=== PATIENT | female | born 1935 | race Caucasian/White ===

== ENCOUNTER 2018-04-23 13:43 | Emergency (ER) | payer MEDICARE, OTHER ==
[~2018-04-23] VITALS: Ht 170.2 cm; Wt 70.0 kg
[~2018-04-23 13:43] MED LIST: ANAS1TAB10 PO; ASPI-1265 PO; ATOR10TA70 PO; FOLI0.4T2 PO; MAGN500C16 PO; METO25TA6 PO; MULT-16 PO; SYN0.088T PO; THIA100T70 PO
[2018-04-23] MEDS ORDERED: normal saline 1000ML IV soln IV ONE (13:50)
[2018-04-23] MEDS ORDERED: folic acid 1mg/0.2ml inj IV ONE ×2 (13:50→15:25)
[2018-04-23] MEDS ORDERED: thiamine 100mg/ml 2ml inj. IV ONE (13:50)
[2018-04-23 14:21] LABS: BASOPHILS % (AUTO) 0.6 % (0-1); EOSINOPHILS # (AUTO) 0.5 X10'3 (0-0.9); EOSINOPHILS % (AUTO) 8.5 % (0-6); HEMATOCRIT 37.6 % (35.0-45.0); HEMOGLOBIN 12.2 g/dl (12.0-16.0); LYMPHOCYTES # (AUTO) 1.9 X10'3 (1.1-4.8); LYMPHOCYTES % (AUTO) 32.6 % (21-51); MEAN CORPUSCULAR HEMOGLOBIN 27.5 PG (27.0-31.0); MEAN CORPUSCULAR HGB CONC 32.5 % (33.0-36.5); MEAN CORPUSCULAR VOLUME 84.8 FL (78-98); MEAN PLATELET VOLUME 6.8 FL (7.4-10.4); MONOCYTES # (AUTO) 0.4 X10'3 (0-0.9); MONOCYTES % (AUTO) 6.6 % (2-12); NEUTROPHILS % (AUTO) 51.7 % (42-75); PLATELET COUNT 270 X10'3 (140-440); RED BLOOD COUNT 4.43 X10'6 (4.20-5.60); RED CELL DISTRIBUTION WIDTH 21.9 % (11.5-14.5); WHITE BLOOD COUNT 5.7 X10'3 (4.5-11.0)
[2018-04-23 14:28] LABS: ALANINE AMINOTRANSFERASE 88 U/L (12-78); ALBUMIN 3.3 G/DL (3.4-5.0); ALBUMIN/GLOBULIN RATIO 0.8 (1.1-1.5); ALKALINE PHOSPHATASE 103 IU/L (46-116); ANION GAP 9 (8-16); ASPARTATE AMINO TRANSFERASE 132 U/L (10-37); BILIRUBIN,TOTAL 0.3 MG/DL (0.1-1.0); BLOOD UREA NITROGEN 9 MG/DL (7-18); CALCIUM 8.6 MG/DL (8.5-10.1); CHLORIDE 102 MMOL/L (99-107); CREATININE 0.82 MG/DL (0.40-0.90); GLUCOSE 80 MG/DL (70-104); SODIUM 136 MMOL/L (135-145); TOTAL PROTEIN 7.3 G/DL (6.4-8.2); eGFR 67 ML/MIN
[2018-04-23 14:35] LABS: POTASSIUM 4.8 MMOL/L (3.5-5.1)
[2018-04-23 14:41] LABS: ETHANOL 0.332 GM/DL (0.0-0.010)
[2018-04-23 14:43] VITALS: BP 137/79
== END 2018-04-23 18:00 | disposition home or self-care (01) ==
LOC: ER 13:44
DX: F10.129 Alcohol abuse with intoxication, unspecified (principal); I49.9 Cardiac arrhythmia, unspecified; I25.10 Atherosclerotic heart disease of native coronary artery without angina pectoris; I10 Essential (primary) hypertension; E03.9 Hypothyroidism, unspecified; Z86.73 Personal history of transient ischemic attack (TIA), and cerebral infarction without residual deficits; Z79.82 Long term (current) use of aspirin; Z79.899 Other long term (current) drug therapy; Y90.0 Blood alcohol level of less than 20 mg/100 ml
CPT/HCPCS: 36415; 70450; 80053; 80320; 85025; 93005; 96374; 96375; 99285; J3411; J3490; J7030

== ENCOUNTER 2018-05-25 15:58 | Emergency (ER) | payer MEDICARE, OTHER ==
[~2018-05-25] VITALS: Ht 165.1 cm; Wt 72.7 kg
[2018-05-25 17:26] LABS: CLARITY,URINE CLEAR (Clear); COLOR,URINE YELLOW (Yellow); GLUCOSE, URINE NEGATIVE (Neg); KETONES,URINE NEGATIVE (Neg); LEUKOCYTE ESTERASE ,URINE NEGATIVE (Neg); NITRITES, URINE NEGATIVE (Neg); OCCULT BLOOD,URINE SMALL (Neg); PH,URINE 5.5 (4.8-8.0); PROTEIN,URINE NEGATIVE (Neg); UROBILINOGEN,URINE 0.2 E.U/dL (0.2-1.0)
[2018-05-25 17:34] LABS: UA COLLECTION TYPE STRAIGHT CATH
[2018-05-25 17:37] LABS: BACTERIA,URINE NONE SEEN /HPF (Neg); RBC,URINE 0-2 /HPF (0-2); SQUAMOUS EPITHELIAL CELL,UR NONE SEEN /LPF (FEW); WBC,URINE NONE SEEN /HPF (0-4)
[2018-05-25 17:38] LABS: URINE AMPHETAMINE SCREEN NEGATIVE (Neg); URINE BARBITUATE SCREEN NEGATIVE (Neg); URINE BENZODIAZEPINES SCREEN NEGATIVE (Neg); URINE CANNABINOID SCREEN NEGATIVE (Neg); URINE COCAINE SCREEN NEGATIVE (Neg); URINE METHADONE SCREEN NEGATIVE (Neg); URINE OPIATE SCREEN NEGATIVE (Neg); URINE PHENCYCLIDINE SCREEN NEGATIVE (Neg)
[2018-05-25 17:49] LABS: INR 0.9 INR; PARTIAL THROMBOPLASTIN TIME 22 SECONDS (22-32); PROTHROMBIN TIME 9.7 SECONDS (9.0-12.0)
[2018-05-25 18:12] LABS: BASOPHILS % (AUTO) 0.5 % (0-1); EOSINOPHILS # (AUTO) 0.7 X10'3 (0-0.9); EOSINOPHILS % (AUTO) 12.8 % (0-6); LYMPHOCYTES # (AUTO) 1.9 X10'3 (1.1-4.8); MEAN CORPUSCULAR HEMOGLOBIN 28.4 PG (27.0-31.0); MEAN CORPUSCULAR HGB CONC 32.6 % (33.0-36.5); MEAN CORPUSCULAR VOLUME 87.1 FL (78-98); MEAN PLATELET VOLUME 6.7 FL (7.4-10.4); MONOCYTES # (AUTO) 0.3 X10'3 (0-0.9); MONOCYTES % (AUTO) 6.5 % (2-12); NEUTROPHILS # (AUTO) 2.3 X10'3 (1.8-7.7); NEUTROPHILS % (AUTO) 43.2 % (42-75); PLATELET COUNT 234 X10'3 (140-440); RED CELL DISTRIBUTION WIDTH 22.4 % (11.5-14.5); WHITE BLOOD COUNT 5.2 X10'3 (4.5-11.0)
[2018-05-25 18:26] LABS: ALANINE AMINOTRANSFERASE 30 U/L (12-78); ALBUMIN 3.3 G/DL (3.4-5.0); ALBUMIN/GLOBULIN RATIO 0.8 (1.1-1.5); ALKALINE PHOSPHATASE 79 IU/L (46-116); ANION GAP 11 (8-16); ASPARTATE AMINO TRANSFERASE 45 U/L (10-37); BILIRUBIN,TOTAL 0.2 MG/DL (0.1-1.0); BLOOD UREA NITROGEN 7 MG/DL (7-18); BUN/CREATININE RATIO 8.5 (6.6-38.0); CALCIUM 8.9 MG/DL (8.5-10.1); CHLORIDE 95 MMOL/L (99-107); CREATININE 0.82 MG/DL (0.40-0.90); GLUCOSE 99 MG/DL (70-104); POTASSIUM 3.7 MMOL/L (3.5-5.1); SODIUM 133 MMOL/L (135-145); TOTAL CARBON DIOXIDE 27.3 MMOL/L (24-32); TOTAL PROTEIN 7.5 G/DL (6.4-8.2); eGFR 67 ML/MIN
[2018-05-25 18:33] VITALS: BP 131/71
[2018-05-25 18:34] LABS: ACETAMINOPHEN < 2.0 UG/ML (10-30); ETHANOL 0.314 GM/DL (0.0-0.010); MAGNESIUM 1.9 MG/DL (1.5-2.4)
[2018-05-25 18:39] LABS: PLATELET ESTIMATE NORMAL
[2018-05-25 18:41] LABS: ANISOCYTOSIS 3+; ELLIPTOCYTES FEW; SCHISTOCYTES FEW; TARGET CELLS FEW
== END 2018-05-25 20:06 | disposition home or self-care (01) ==
LOC: ER 15:58
DX: F10.129 Alcohol abuse with intoxication, unspecified (principal); F03.90 Unspecified dementia, unspecified severity, without behavioral disturbance, psychotic disturbance, mood disturbance, and anxiety; I25.10 Atherosclerotic heart disease of native coronary artery without angina pectoris; F29 Unspecified psychosis not due to a substance or known physiological condition; I10 Essential (primary) hypertension; E03.9 Hypothyroidism, unspecified; Z79.82 Long term (current) use of aspirin; Z79.899 Other long term (current) drug therapy
CPT/HCPCS: 36415; 70450; 71045; 80053; 80305; 80320; 80329; 81001; 83735; 85025; 85610; 85730; 93005; 99285

== ENCOUNTER 2018-12-12 22:42 | Emergency (ER) | payer MEDICARE ==
[~2018-12-12] VITALS: Ht 167.6 cm; Wt 65.0 kg
[2018-12-12] MEDS ORDERED: normal saline 1000ML IV soln IVB ONE (23:00)
[2018-12-12 23:18] LABS: BASOPHILS # (AUTO) 0.1 X10'3 (0-0.2); EOSINOPHILS # (AUTO) 0.2 X10'3 (0-0.9); EOSINOPHILS % (AUTO) 2.9 % (0-6); HEMATOCRIT 41.1 % (35.0-45.0); HEMOGLOBIN 13.6 g/dl (12.0-16.0); LYMPHOCYTES # (AUTO) 1.1 X10'3 (1.1-4.8); LYMPHOCYTES % (AUTO) 16.2 % (21-51); MEAN CORPUSCULAR HEMOGLOBIN 30.1 PG (27.0-31.0); MEAN CORPUSCULAR HGB CONC 33.2 g/dL (33.0-36.5); MEAN CORPUSCULAR VOLUME 90.7 FL (78-98); MONOCYTES # (AUTO) 0.5 X10'3 (0-0.9); MONOCYTES % (AUTO) 7.9 % (2-12); NEUTROPHILS # (AUTO) 4.8 X10'3 (1.8-7.7); PLATELET COUNT 213 X10'3 (140-440); RED BLOOD COUNT 4.53 X10'6 (4.20-5.60); RED CELL DISTRIBUTION WIDTH 20.4 % (11.5-14.5); WHITE BLOOD COUNT 6.7 X10'3 (4.5-11.0)
[2018-12-12 23:31] LABS: PROTHROMBIN TIME 10.5 SECONDS (9.0-12.0)
[2018-12-12 23:32] LABS: PARTIAL THROMBOPLASTIN TIME 27 SECONDS (22-32)
[2018-12-12 23:37] LABS: ALANINE AMINOTRANSFERASE 31 U/L (12-78); ALBUMIN 3.5 G/DL (3.4-5.0); ALBUMIN/GLOBULIN RATIO 0.8 (1.1-1.5); ALKALINE PHOSPHATASE 98 IU/L (46-116); ANION GAP 11 (8-16); ASPARTATE AMINO TRANSFERASE 45 U/L (10-37); BILIRUBIN,TOTAL 0.3 MG/DL (0.1-1.0); BLOOD UREA NITROGEN 6 MG/DL (7-18); BUN/CREATININE RATIO 7.1 (6.6-38.0); CALCIUM 9.2 MG/DL (8.5-10.1); CHLORIDE 97 MMOL/L (99-107); CREATININE 0.84 MG/DL (0.40-0.90); GLUCOSE 83 MG/DL (70-104); SODIUM 132 MMOL/L (135-145); TOTAL CARBON DIOXIDE 23.8 MMOL/L (24-32); TOTAL PROTEIN 7.7 G/DL (6.4-8.2); eGFR 65 ML/MIN
[2018-12-12 23:39] LABS: ETHANOL 0.221 GM/DL (0.0-0.010); TROPONIN I < 0.04 NG/ML (0.0-0.05)
[2018-12-12 23:40] LABS: AMMONIA < 10 UMOL/L (11-32)
[2018-12-12 23:44] LABS: LACTIC SEPSIS 3.9 MMOL/L (0.4-2.0)
[2018-12-12 23:49] LABS: CLARITY,URINE CLEAR (Clear); COLOR,URINE YELLOW (Yellow); GLUCOSE, URINE NEGATIVE (Neg); KETONES,URINE NEGATIVE (Neg); LEUKOCYTE ESTERASE ,URINE NEGATIVE (Neg); NITRITES, URINE NEGATIVE (Neg); OCCULT BLOOD,URINE TRACE-LYSED (Neg); PROTEIN,URINE NEGATIVE (Neg); UROBILINOGEN,URINE 0.2 E.U/dL (0.2-1.0)
[2018-12-12 23:51] LABS: URINE AMPHETAMINE SCREEN NEGATIVE (Neg); URINE BARBITUATE SCREEN NEGATIVE (Neg); URINE BENZODIAZEPINES SCREEN NEGATIVE (Neg); URINE CANNABINOID SCREEN NEGATIVE (Neg); URINE COCAINE SCREEN NEGATIVE (Neg); URINE METHADONE SCREEN NEGATIVE (Neg); URINE OPIATE SCREEN NEGATIVE (Neg); URINE PHENCYCLIDINE SCREEN NEGATIVE (Neg)
[2018-12-12 23:55] LABS: UA COLLECTION TYPE VOIDED
[2018-12-12 23:56] LABS: BACTERIA,URINE NONE SEEN /HPF (Neg); RBC,URINE 0-2 /HPF (0-2); SQUAMOUS EPITHELIAL CELL,UR FEW /LPF (FEW); WBC,URINE NONE SEEN /HPF (0-4)
--- NOTE | 2018-12-13 00:05 | NUR ---
Pt. was never in restraints. It is not needed at this time.
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
--- NOTE | 2018-12-13 01:20 | NUR ---
LEFT MESSAGE FOR EMAN REGARDING A TLSO BRACE
--- NOTE | 2018-12-13 01:23 | NUR ---
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
[2018-12-13 01:51] VITALS: BP 140/76
== END 2018-12-13 02:40 | disposition home or self-care (01) ==
LOC: ER 22:43
DX: S22.028A Other fracture of second thoracic vertebra, initial encounter for closed fracture (principal); S22.42XA Multiple fractures of ribs, left side, initial encounter for closed fracture; S01.01XA Laceration without foreign body of scalp, initial encounter; F10.129 Alcohol abuse with intoxication, unspecified; I25.10 Atherosclerotic heart disease of native coronary artery without angina pectoris; I10 Essential (primary) hypertension; E03.9 Hypothyroidism, unspecified; Z86.73 Personal history of transient ischemic attack (TIA), and cerebral infarction without residual deficits; Z79.82 Long term (current) use of aspirin; Z79.899 Other long term (current) drug therapy; Y90.9 Presence of alcohol in blood, level not specified; X58.XXXA Exposure to other specified factors, initial encounter; Y93.89 Activity, other specified; Y92.89 Other specified places as the place of occurrence of the external cause; Y99.8 Other external cause status
CPT/HCPCS: 12001; 36415; 70450; 71045; 72125; 72128; 72131; 80053; 80305; 80320; 81001; 82140; 82948; 83605; 84484; 85025; 85610; 85730; 87040; 93005; 99284; J7030

== ENCOUNTER 2019-08-12 12:35 | Inpatient (IN) | payer MEDICARE ==
[~2019-08-12] VITALS: Ht 165.1 cm; Wt 68.0 kg
[2019-08-12] MEDS ORDERED: iohexol 350MG/ML 100ml bottle IV ONE (12:47)
[2019-08-12 12:53] LABS: BASOPHILS # (AUTO) 0.1 X10'3 (0-0.2); BASOPHILS % (AUTO) 0.5 % (0-1); EOSINOPHILS # (AUTO) 0.2 X10'3 (0-0.9); HEMATOCRIT 41.9 % (35.0-45.0); HEMOGLOBIN 13.4 g/dl (12.0-16.0); LYMPHOCYTES # (AUTO) 0.8 X10'3 (1.1-4.8); MEAN CORPUSCULAR HEMOGLOBIN 29.1 PG (27.0-31.0); MEAN CORPUSCULAR HGB CONC 31.9 g/dL (33.0-36.5); MEAN CORPUSCULAR VOLUME 91.4 FL (78-98); MEAN PLATELET VOLUME 7.2 FL (7.4-10.4); MONOCYTES # (AUTO) 0.5 X10'3 (0-0.9); MONOCYTES % (AUTO) 3.1 % (2-12); NEUTROPHILS # (AUTO) 14.7 X10'3 (1.8-7.7); NEUTROPHILS % (AUTO) 90.4 % (42-75); PLATELET COUNT 224 X10'3 (140-440); RED BLOOD COUNT 4.58 X10'6 (4.20-5.60); RED CELL DISTRIBUTION WIDTH 15.2 % (11.5-14.5); WHITE BLOOD COUNT 16.3 X10'3 (4.5-11.0)
--- NOTE | 2019-08-12 12:59 | NUR ---
TELE NEURO CONSULT HAS BEEN INITIATED
[2019-08-12 13:07] LABS: PARTIAL THROMBOPLASTIN TIME 24 SECONDS (22-32)
[2019-08-12 13:11] LABS: ALANINE AMINOTRANSFERASE 17 U/L (12-78); ALBUMIN 3.8 G/DL (3.4-5.0); ALBUMIN/GLOBULIN RATIO 0.8 (1.1-1.5); ALKALINE PHOSPHATASE 77 IU/L (46-116); ANION GAP 14 (8-16); ASPARTATE AMINO TRANSFERASE 24 U/L (10-37); BILIRUBIN,TOTAL 0.3 MG/DL (0.1-1.0); BLOOD UREA NITROGEN 10 MG/DL (7-18); BUN/CREATININE RATIO 8.8 (6.6-38.0); CALCIUM 9.3 MG/DL (8.5-10.1); CHLORIDE 100 MMOL/L (99-107); CREATININE 1.14 MG/DL (0.40-0.90); GLUCOSE 158 MG/DL (70-104); POTASSIUM 3.6 MMOL/L (3.5-5.1); SODIUM 138 MMOL/L (135-145); TOTAL CARBON DIOXIDE 24.5 MMOL/L (24-32); TOTAL PROTEIN 8.7 G/DL (6.4-8.2); eGFR 45 ML/MIN
[2019-08-12 13:14] LABS: TROPONIN I < 0.04 NG/ML (0.0-0.05)
[2019-08-12] MEDS ORDERED: ANAS1TAB PO (13:30)
[2019-08-12] MEDS ORDERED: DESV25TA2 PO (13:33)
[2019-08-12] MEDS ORDERED: ACET-2119 PO (13:37)
[2019-08-12] MEDS ORDERED: CETI10TA15 PO (13:37)
[2019-08-12] MEDS ORDERED: DOXY25PO2 PO (13:40)
[2019-08-12] MEDS ORDERED: CALC500T11 PO (13:41)
[2019-08-12] MEDS ORDERED: ondansetron/PF 4mg/2ml inj IV ONE (13:45)
[2019-08-12] MEDS ORDERED: BISM525O14 PO (13:51)
[2019-08-12 13:57] LABS: ETHANOL < 0.010 GM/DL (0.0-0.010)
[2019-08-12] MEDS ORDERED: diphenhydrAMINE 25mg capsule PO PRN (15:05)
[2019-08-12] MEDS ORDERED: potassium Cl 20 mEq SR tablet PO PRN (15:05)
[2019-08-12] MEDS ORDERED: HYDROcodone/acetaminophen 5mg/325mg tablet PO PRN (15:05)
[2019-08-12] MEDS ORDERED: potassium CL 10mEq/100ml bag 100 ML IV PRN (15:05)
[2019-08-12] MEDS ORDERED: magnesium hydroxide 30ml (MOM) UD suspension PO PRN ×2 (15:05)
[2019-08-12] MEDS ORDERED: magnesium 4gm in 100ml NS 100 ML IV PRN (15:05)
[2019-08-12] MEDS ORDERED: morphine 2 MG/ML inj. syringe IV PRN ×2 (15:05)
[2019-08-12] MEDS ORDERED: magnesium 2GM in 50ml NS 50 ML IV PRN (15:05)
[2019-08-12] MEDS ORDERED: acetaminophen 325mg tablet PO PRN ×3 (15:05)
[2019-08-12] MEDS ORDERED: acetaminophen 650mg rectal suppository RC PRN (15:05)
[2019-08-12] MEDS: atorvastatin 20mg tablet PO SCH (15:05)
[2019-08-12] MEDS: K and/or MAG REPLACEMENT MC SCH (15:05)
[2019-08-12] MEDS ORDERED: mag hydrox/Alum hydrox/simeth 30ml oral suspension PO PRN ×2 (15:05)
[2019-08-12] MEDS ORDERED: ondansetron/PF 4mg/2ml inj IV PRN ×2 (15:05)
[2019-08-12] MEDS ORDERED: HYDROcodone/acetaminophen 10/325mg tab PO PRN (15:05)
[2019-08-12] MEDS ORDERED: magnesium Cl slow-release 64mg tablet PO PRN (15:05)
[2019-08-12] MEDS ORDERED: bisacodyl 10mg suppository rectal RC PRN (15:05)
[2019-08-12] MEDS ORDERED: diphenhydrAMINE 50 mg/ml inj IV PRN (15:05)
[2019-08-12] MEDS ORDERED: aspirin 325mg tablet PO ONE ×2 (15:10)
[2019-08-12] MEDS ORDERED: aspirin 300mg supp.rect RC ONE (15:15)
[2019-08-12] MEDS ORDERED: MULT-16 PO (15:46)
[2019-08-12] MEDS ORDERED: THIA50TA10 PO (15:46)
[2019-08-12] MEDS ORDERED: MULT-933 PO (15:48)
[2019-08-12 15:53] LABS: HEMOGLOBIN A1C 5.4 % (4.5-6.2)
[2019-08-12 15:58] LABS: CHOL/HDL RATIO 2.4 (0.00-4.99); CHOLESTEROL 188 MG/DL (0-200); HDL CHOLESTEROL 77 MG/DL (35-60); LDL CHOLESTEROL 101 MG/DL (50-100); TRIGLYCERIDES 102 MG/DL (20-135)
[2019-08-12 15:59] LABS: CLARITY,URINE SLIGHTLY CLOUDY (Clear); COLOR,URINE STRAW (Yellow); GLUCOSE, URINE NEGATIVE (Neg); KETONES,URINE NEGATIVE (Neg); LEUKOCYTE ESTERASE ,URINE NEGATIVE (Neg); NITRITES, URINE NEGATIVE (Neg); OCCULT BLOOD,URINE MODERATE (Neg); PH,URINE 5.5 (4.8-8.0); PROTEIN,URINE NEGATIVE (Neg); UROBILINOGEN,URINE 0.2 E.U/dL (0.2-1.0)
[2019-08-12 16:05] LABS: UA COLLECTION TYPE STRAIGHT CATH
[2019-08-12] MEDS: normal saline 1000ml 1,000 ML IV SCH (16:08)
[2019-08-12 16:29] LABS: MUCUS STRANDS FEW /LPF (Neg); SQUAMOUS EPITHELIAL CELL,UR MODERATE /LPF (FEW)
[2019-08-12 16:30] LABS: FINE GRANULAR CAST 0-3 /LPF (NEGATIVE)
[2019-08-12 16:31] LABS: AMORPHOUS URATES 1+; BACTERIA,URINE 1+ /HPF (Neg)
--- NOTE | 2019-08-12 16:33 | NUR ---
power of care specialist: shivani ramsey: [phone] bell rodriguez: [phone]
--- NOTE | 2019-08-12 16:55 | NUR ---
Pt arrived on the floor, tucked in, provided reassurance, pt non-verbal at this time.
[2019-08-12] MEDS ORDERED: BISMUTH SUBSALICYLATE PO SCH (17:00)
[2019-08-12 18:00] VITALS: BP 172/89
--- NOTE | 2019-08-12 18:20 | NUR ---
Received report from Kelli CHRISTIAN. assumed care of patient. son at the bedside.
--- NOTE | 2019-08-12 18:20 | NUR ---
Problems reprioritized. Patient report given, questions answered & plan of care reviewed with Luna.
[2019-08-12] MEDS: docusate sod 100mg capsule PO SCH (20:00)
[2019-08-12] MEDS: heparin, porcine 5000 units/ml vial SQ SCH (20:25)
[2019-08-12] MEDS: calcium carbonate 500mg chew tablet PO SCH (20:25)
[2019-08-12] MEDS: acetaminophen 325mg tablet PO SCH (20:25)
[2019-08-12] MEDS: bismuth subsalicylate 262mg/15ml oral suspension PO SCH (20:25)
[2019-08-12] MEDS ORDERED: DOXYLAMINE SUCCINATE PO SCH (21:00)
--- NOTE | 2019-08-12 21:00 | NUR ---
Attempted to check patients blood sugar. Patient refused. educated patient and encouraged patient to allow me to check patient. patient refused. will continue to monitor patient.
[2019-08-12 22:00] VITALS: BP 152/80
[2019-08-13] MEDS: normal saline 1000ml 1,000 ML IV SCH ×3 (01:03→12:17)
[2019-08-13 02:00] VITALS: BP 162/70
[2019-08-13 06:00] VITALS: BP 140/63
--- NOTE | 2019-08-13 06:00 | NUR ---
Patient in room [facility]TH[facility] 4020. I have received report from ANAHY CHRISTIAN and had the opportunity to ask questions and assume patient care.
--- NOTE | 2019-08-13 06:10 | NUR ---
Gave report to Alicia CHRISTIAN.
[2019-08-13] MEDS: atorvastatin 20mg tablet PO SCH (08:00)
[2019-08-13] MEDS: magnesium oxide 400mg tablet PO SCH (08:00)
[2019-08-13] MEDS: cetirizine 10mg tablet PO SCH (08:00)
[2019-08-13] MEDS: thiamine 100mg tablet PO SCH (08:00)
[2019-08-13] MEDS: docusate sod 100mg capsule PO SCH ×2 (08:00→21:18)
[2019-08-13] MEDS: aspirin 81mg tablet.DR PO SCH (08:00)
[2019-08-13] MEDS: bismuth subsalicylate 262mg/15ml oral suspension PO SCH ×4 (08:00→21:00)
[2019-08-13] MEDS: calcium carbonate 500mg chew tablet PO SCH ×4 (08:00→21:18)
[2019-08-13] MEDS: multivitamins, therapeutics tablet PO SCH (08:00)
[2019-08-13] MEDS: anastrozole 1 MG tablet PO SCH (08:00)
[2019-08-13] MEDS: DESVENLAFAXINE 25 MG PO SCH (08:00)
[2019-08-13] MEDS: folic acid 1mg tablet PO SCH (08:00)
--- NOTE | 2019-08-13 08:25 | NUR ---
PATIENT REFUSING ACCUCHECK.
[2019-08-13] MEDS: heparin, porcine 5000 units/ml vial SQ SCH ×2 (09:01→21:19)
[2019-08-13 10:00] VITALS: BP 144/84
--- NOTE | 2019-08-13 10:09 | NUR ---
PAGER ID: [phone] MESSAGE: BOB [id number] RE: SHIRLEY [id number] DO YOU WANT ME TO START ROCEPHIN?
--- NOTE | 2019-08-13 10:21 | NUR ---
Pt with low Rory of 11, per physical assessment pt with no edema or wounds however documented with reddened coccyx. Wound care has been consulted for further assessment however skin intact at this time. No nutrition intervention warranted at this time. Pt on regular diet documented with 0% PO intake first meal. Pt s/p BSS this morning with ST recs mechanical soft with thin liquids and needs a feeder d/t cognitive level. 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 Will continue to follow and monitor need for ONS pending PO intake since texture modification. Addendum: 08/13/19 at [address] Amended: Links added.
[2019-08-13 11:06] LABS: BASOPHILS % (AUTO) 0.7 % (0-1); EOSINOPHILS % (AUTO) 0.1 % (0-6); HEMATOCRIT 34.5 % (35.0-45.0); HEMOGLOBIN 11.4 g/dl (12.0-16.0); LYMPHOCYTES # (AUTO) 0.9 X10'3 (1.1-4.8); LYMPHOCYTES % (AUTO) 13.8 % (21-51); MEAN CORPUSCULAR HEMOGLOBIN 29.8 PG (27.0-31.0); MEAN CORPUSCULAR HGB CONC 33.1 g/dL (33.0-36.5); MEAN CORPUSCULAR VOLUME 90.1 FL (78-98); MEAN PLATELET VOLUME 7.3 FL (7.4-10.4); MONOCYTES # (AUTO) 0.5 X10'3 (0-0.9); NEUTROPHILS # (AUTO) 5.1 X10'3 (1.8-7.7); NEUTROPHILS % (AUTO) 77.4 % (42-75); PLATELET COUNT 170 X10'3 (140-440); RED BLOOD COUNT 3.82 X10'6 (4.20-5.60); RED CELL DISTRIBUTION WIDTH 14.8 % (11.5-14.5); WHITE BLOOD COUNT 6.6 X10'3 (4.5-11.0)
[2019-08-13 11:30] LABS: ALANINE AMINOTRANSFERASE 14 U/L (12-78); ALBUMIN/GLOBULIN RATIO 0.7 (1.1-1.5); ALKALINE PHOSPHATASE 57 IU/L (46-116); ANION GAP 11 (8-16); ASPARTATE AMINO TRANSFERASE 26 U/L (10-37); BILIRUBIN,TOTAL 0.5 MG/DL (0.1-1.0); BLOOD UREA NITROGEN 9 MG/DL (7-18); BUN/CREATININE RATIO 12.5 (6.6-38.0); CALCIUM 8.4 MG/DL (8.5-10.1); CHLORIDE 100 MMOL/L (99-107); CHOL/HDL RATIO 2.5 (0.00-4.99); CHOLESTEROL 155 MG/DL (0-200); CREATININE 0.72 MG/DL (0.40-0.90); GLUCOSE 94 MG/DL (70-104); HDL CHOLESTEROL 63 MG/DL (35-60); LDL CHOLESTEROL 84 MG/DL (50-100); MAGNESIUM 1.6 MG/DL (1.5-2.4); PHOSPHORUS 2.6 MG/DL (2.3-4.5); POTASSIUM 3.2 MMOL/L (3.5-5.1); SODIUM 134 MMOL/L (135-145); TOTAL CARBON DIOXIDE 23.1 MMOL/L (24-32); TOTAL PROTEIN 7.1 G/DL (6.4-8.2); TRIGLYCERIDES 63 MG/DL (20-135); eGFR 77 ML/MIN
[2019-08-13] MEDS: K and/or MAG REPLACEMENT MC SCH (12:02)
[2019-08-13] MEDS: potassium CL 10mEq/100ml bag 100 ML IV PRN ×4 (12:13→21:29)
--- NOTE | 2019-08-13 12:50 | NUR ---
PATIENT REFUSING ACCUCHECK
[2019-08-13] MEDS: CefTRIAXone/D5W-Rocephin 1gm 50 ML IV SCH (15:51)
--- NOTE | 2019-08-13 17:30 | NUR ---
CONTACTED SON REGARDING BRINGING IN PATIENT'S OWN PRISTIQUE MEDICATION. HE WILL CONTACT HE LONG-TERM AND BRING IT IN OR LET US KNOW IF THAT CAN'T BE DONE. IF UNABLE TO BRING IN, CONTACT OUR PHARMACY FOR A SUBSTITUTION PER DR DORAN.
--- NOTE | 2019-08-13 17:48 | NUR ---
PAGER ID: [phone] MESSAGE: BOB [id number] RE: SHIRLEY [id number] PT A1C 5.4 CAN WE DC ACCUCHECKS?
[2019-08-13 18:00] VITALS: BP 153/72
--- NOTE | 2019-08-13 18:20 | NUR ---
Problems reprioritized. Patient report given, questions answered & plan of care reviewed with SONNY CHRISTIAN.
[2019-08-13] MEDS: lactobacillus rhamnosus 10,000 MMU CELLS/CAPSULE PO SCH (21:18)
[2019-08-13] MEDS: acetaminophen 325mg tablet PO SCH (21:18)
[2019-08-13 22:00] VITALS: BP 146/75
[2019-08-14] MEDS: normal saline 1000ml 1,000 ML IV SCH ×2 (02:44→12:55)
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
--- NOTE | 2019-08-14 04:03 | NUR ---
REVIEWED AND AGREE WITH SRN ASSESSMENT.
[2019-08-14 06:00] VITALS: BP 160/80
--- NOTE | 2019-08-14 06:19 | NUR ---
Problems reprioritized. Patient report given, questions answered & plan of care reviewed with ANAHI Pereira.
--- NOTE | 2019-08-14 06:40 | NUR ---
Patient in room ORTHO 4020. I have received report from Donna Devine and had the opportunity to ask questions and assume patient care.
[2019-08-14] MEDS: K and/or MAG REPLACEMENT MC SCH (08:00)
[2019-08-14] MEDS: DESVENLAFAXINE 25 MG PO SCH (08:00)
[2019-08-14] MEDS: CefTRIAXone/D5W-Rocephin 1gm 50 ML IV SCH (09:17)
[2019-08-14] MEDS: docusate sod 100mg capsule PO SCH ×2 (09:19→19:45)
[2019-08-14] MEDS: anastrozole 1 MG tablet PO SCH (09:19)
[2019-08-14] MEDS: folic acid 1mg tablet PO SCH (09:20)
[2019-08-14] MEDS: aspirin 81mg tablet.DR PO SCH (09:20)
[2019-08-14] MEDS: lactobacillus rhamnosus 10,000 MMU CELLS/CAPSULE PO SCH ×2 (09:20→19:44)
[2019-08-14] MEDS: atorvastatin 20mg tablet PO SCH (09:20)
[2019-08-14] MEDS: magnesium oxide 400mg tablet PO SCH (09:21)
[2019-08-14] MEDS: bismuth subsalicylate 262mg/15ml oral suspension PO SCH ×4 (09:21→19:46)
[2019-08-14] MEDS: multivitamins, therapeutics tablet PO SCH (09:21)
[2019-08-14] MEDS: thiamine 100mg tablet PO SCH (09:22)
[2019-08-14] MEDS: cetirizine 10mg tablet PO SCH (09:22)
[2019-08-14] MEDS: calcium carbonate 500mg chew tablet PO SCH ×4 (09:22→19:46)
[2019-08-14] MEDS: heparin, porcine 5000 units/ml vial SQ SCH ×2 (09:23→19:44)
[2019-08-14 10:00] VITALS: BP 144/81
[2019-08-14 11:02] LABS: BASOPHILS % (AUTO) 0.9 % (0-1); EOSINOPHILS # (AUTO) 0.1 X10'3 (0-0.9); EOSINOPHILS % (AUTO) 1.4 % (0-6); HEMATOCRIT 37.1 % (35.0-45.0); HEMOGLOBIN 12.1 g/dl (12.0-16.0); LYMPHOCYTES % (AUTO) 19.2 % (21-51); MEAN CORPUSCULAR HGB CONC 32.5 g/dL (33.0-36.5); MEAN CORPUSCULAR VOLUME 89.1 FL (78-98); MEAN PLATELET VOLUME 7.4 FL (7.4-10.4); MONOCYTES # (AUTO) 0.5 X10'3 (0-0.9); NEUTROPHILS # (AUTO) 3.5 X10'3 (1.8-7.7); NEUTROPHILS % (AUTO) 68.5 % (42-75); PLATELET COUNT 178 X10'3 (140-440); RED BLOOD COUNT 4.16 X10'6 (4.20-5.60); RED CELL DISTRIBUTION WIDTH 14.8 % (11.5-14.5); WHITE BLOOD COUNT 5.2 X10'3 (4.5-11.0)
[2019-08-14 11:16] LABS: ALANINE AMINOTRANSFERASE 13 U/L (12-78); ALBUMIN 3.1 G/DL (3.4-5.0); ALBUMIN/GLOBULIN RATIO 0.7 (1.1-1.5); ALKALINE PHOSPHATASE 56 IU/L (46-116); ANION GAP 10 (8-16); ASPARTATE AMINO TRANSFERASE 23 U/L (10-37); BILIRUBIN,TOTAL 0.3 MG/DL (0.1-1.0); BLOOD UREA NITROGEN 8 MG/DL (7-18); BUN/CREATININE RATIO 11.1 (6.6-38.0); CALCIUM 8.5 MG/DL (8.5-10.1); CHLORIDE 102 MMOL/L (99-107); CREATININE 0.72 MG/DL (0.40-0.90); GLUCOSE 96 MG/DL (70-104); MAGNESIUM 1.7 MG/DL (1.5-2.4); PHOSPHORUS 2.6 MG/DL (2.3-4.5); POTASSIUM 3.4 MMOL/L (3.5-5.1); SODIUM 137 MMOL/L (135-145); TOTAL CARBON DIOXIDE 25.4 MMOL/L (24-32); TOTAL PROTEIN 7.3 G/DL (6.4-8.2); eGFR 77 ML/MIN
[2019-08-14] MEDS: potassium Cl 20 mEq SR tablet PO PRN ×3 (13:06→21:39)
[2019-08-14 18:00] VITALS: BP 163/73
--- NOTE | 2019-08-14 18:23 | NUR ---
Problems reprioritized. Patient report given, questions answered & plan of care reviewed with Donna Devine
[2019-08-14] MEDS: acetaminophen 325mg tablet PO SCH (19:44)
[2019-08-14] MEDS: venlafaxine 25mg tablet PO SCH (20:06)
[2019-08-14 22:00] VITALS: BP 155/88
--- NOTE | 2019-08-15 04:37 | NUR ---
reviewed and agree with assessment from SRN
[2019-08-15 06:00] VITALS: BP 169/98
[2019-08-15 06:26] LABS: ALANINE AMINOTRANSFERASE 18 U/L (12-78); ALBUMIN 3.2 G/DL (3.4-5.0); ALBUMIN/GLOBULIN RATIO 0.7 (1.1-1.5); ALKALINE PHOSPHATASE 55 IU/L (46-116); ANION GAP 8 (8-16); ASPARTATE AMINO TRANSFERASE 22 U/L (10-37); BILIRUBIN,TOTAL 0.4 MG/DL (0.1-1.0); BLOOD UREA NITROGEN 8 MG/DL (7-18); CALCIUM 9.2 MG/DL (8.5-10.1); CHLORIDE 101 MMOL/L (99-107); CREATININE 0.73 MG/DL (0.40-0.90); GLUCOSE 89 MG/DL (70-104); MAGNESIUM 1.7 MG/DL (1.5-2.4); PHOSPHORUS 3.3 MG/DL (2.3-4.5); POTASSIUM 3.9 MMOL/L (3.5-5.1); SODIUM 135 MMOL/L (135-145); TOTAL CARBON DIOXIDE 26.3 MMOL/L (24-32); TOTAL PROTEIN 7.5 G/DL (6.4-8.2); eGFR 76 ML/MIN
[2019-08-15 06:44] LABS: EOSINOPHILS # (AUTO) 0.2 X10'3 (0-0.9); EOSINOPHILS % (AUTO) 4.7 % (0-6); HEMATOCRIT 36.8 % (35.0-45.0); HEMOGLOBIN 12.3 g/dl (12.0-16.0); LYMPHOCYTES % (AUTO) 19.9 % (21-51); MEAN CORPUSCULAR HEMOGLOBIN 29.5 PG (27.0-31.0); MEAN CORPUSCULAR HGB CONC 33.4 g/dL (33.0-36.5); MEAN CORPUSCULAR VOLUME 88.4 FL (78-98); MONOCYTES # (AUTO) 0.5 X10'3 (0-0.9); MONOCYTES % (AUTO) 9.9 % (2-12); NEUTROPHILS # (AUTO) 3.2 X10'3 (1.8-7.7); NEUTROPHILS % (AUTO) 64.5 % (42-75); PLATELET COUNT 190 X10'3 (140-440); RED BLOOD COUNT 4.17 X10'6 (4.20-5.60); RED CELL DISTRIBUTION WIDTH 14.9 % (11.5-14.5)
--- NOTE | 2019-08-15 06:51 | NUR ---
Problems reprioritized. Patient report given, questions answered & plan of care reviewed with ANAHI Morris.
[2019-08-15] MEDS: K and/or MAG REPLACEMENT MC SCH (08:00)
[2019-08-15 10:00] VITALS: BP 130/77
[2019-08-15] MEDS: CefTRIAXone/D5W-Rocephin 1gm 50 ML IV SCH (10:21)
[2019-08-15] MEDS: anastrozole 1 MG tablet PO SCH (10:28)
[2019-08-15] MEDS: lactobacillus rhamnosus 10,000 MMU CELLS/CAPSULE PO SCH ×2 (10:28→20:17)
[2019-08-15] MEDS: docusate sod 100mg capsule PO SCH ×2 (10:28→20:17)
[2019-08-15] MEDS: atorvastatin 20mg tablet PO SCH (10:29)
[2019-08-15] MEDS: multivitamins, therapeutics tablet PO SCH (10:29)
[2019-08-15] MEDS: bismuth subsalicylate 262mg/15ml oral suspension PO SCH ×4 (10:29→20:31)
[2019-08-15] MEDS: venlafaxine 25mg tablet PO SCH ×3 (10:29→20:17)
[2019-08-15] MEDS: magnesium oxide 400mg tablet PO SCH (10:29)
[2019-08-15] MEDS: folic acid 1mg tablet PO SCH (10:29)
[2019-08-15] MEDS: aspirin 81mg tablet.DR PO SCH (10:29)
[2019-08-15] MEDS: cetirizine 10mg tablet PO SCH (10:30)
[2019-08-15] MEDS: calcium carbonate 500mg chew tablet PO SCH ×4 (10:30→20:17)
[2019-08-15] MEDS: heparin, porcine 5000 units/ml vial SQ SCH ×2 (10:33→20:16)
[2019-08-15] MEDS: thiamine 100mg tablet PO SCH (10:35)
--- NOTE | 2019-08-15 12:02 | NUR ---
Initial: Pt admit w/ r/o stroke; no CVA per w/ EF 55-60% per MD note. DX metabolic vs toxic encephalopathy. LBM 08/14 on colace. Pt currently AOx2 and no hx dementia per MD note. Hx heavy etoh; etoh WNL on admit receiving thiamin/folic/MVI for needs. PO improved to 50-75% avg meals yesterday up from 0-25% first 2 days of admit. Will monitor for ONS needs pending further PO hx as mentation improves. Rec: 1. continue mechanical soft/chopped diet per MD/SP 2. monitor for ONS needs as mentation improves 3. routine bowel care 4. weekly wts Addendum: 08/15/19 at [address] Amended: Links added.
[2019-08-15 18:00] VITALS: BP 161/84
--- NOTE | 2019-08-15 18:15 | NUR ---
Received patient report from ANAHI Morris. Assumed care of patient.
[2019-08-15] MEDS ORDERED: lactobacillus rhamnosus 10,000 MMU CELLS/CAPSULE PO SCH (20:00)
[2019-08-15] MEDS: acetaminophen 325mg tablet PO SCH (20:17)
[2019-08-16 06:00] VITALS: BP 132/84
--- NOTE | 2019-08-16 06:26 | NUR ---
Patient report given, questions answered and plan of care reviewed with ANAHI Morris.
[2019-08-16 06:55] LABS: BASOPHILS # (AUTO) 0.1 X10'3 (0-0.2); BASOPHILS % (AUTO) 1.1 % (0-1); EOSINOPHILS # (AUTO) 0.2 X10'3 (0-0.9); EOSINOPHILS % (AUTO) 3.9 % (0-6); HEMATOCRIT 36.9 % (35.0-45.0); HEMOGLOBIN 12.4 g/dl (12.0-16.0); LYMPHOCYTES # (AUTO) 1.2 X10'3 (1.1-4.8); LYMPHOCYTES % (AUTO) 23.1 % (21-51); MEAN CORPUSCULAR HEMOGLOBIN 29.6 PG (27.0-31.0); MEAN CORPUSCULAR HGB CONC 33.6 g/dL (33.0-36.5); MEAN CORPUSCULAR VOLUME 88.3 FL (78-98); MONOCYTES # (AUTO) 0.4 X10'3 (0-0.9); MONOCYTES % (AUTO) 8.2 % (2-12); NEUTROPHILS # (AUTO) 3.4 X10'3 (1.8-7.7); NEUTROPHILS % (AUTO) 63.7 % (42-75); PLATELET COUNT 207 X10'3 (140-440); RED BLOOD COUNT 4.18 X10'6 (4.20-5.60); WHITE BLOOD COUNT 5.4 X10'3 (4.5-11.0)
[2019-08-16 07:12] LABS: ALANINE AMINOTRANSFERASE 12 U/L (12-78); ALBUMIN 3.2 G/DL (3.4-5.0); ALBUMIN/GLOBULIN RATIO 0.8 (1.1-1.5); ALKALINE PHOSPHATASE 55 IU/L (46-116); ANION GAP 10 (8-16); ASPARTATE AMINO TRANSFERASE 23 U/L (10-37); BILIRUBIN,TOTAL 0.5 MG/DL (0.1-1.0); BLOOD UREA NITROGEN 11 MG/DL (7-18); BUN/CREATININE RATIO 14.1 (6.6-38.0); CHLORIDE 98 MMOL/L (99-107); CREATININE 0.78 MG/DL (0.40-0.90); GLUCOSE 91 MG/DL (70-104); MAGNESIUM 1.7 MG/DL (1.5-2.4); PHOSPHORUS 3.8 MG/DL (2.3-4.5); POTASSIUM 3.5 MMOL/L (3.5-5.1); SODIUM 133 MMOL/L (135-145); TOTAL CARBON DIOXIDE 25.4 MMOL/L (24-32); TOTAL PROTEIN 7.3 G/DL (6.4-8.2); eGFR 70 ML/MIN
[2019-08-16] MEDS: lactobacillus rhamnosus 10,000 MMU CELLS/CAPSULE PO SCH (08:00)
[2019-08-16] MEDS: calcium carbonate 500mg chew tablet PO SCH (08:00)
[2019-08-16] MEDS: bismuth subsalicylate 262mg/15ml oral suspension PO SCH (08:00)
[2019-08-16] MEDS: K and/or MAG REPLACEMENT MC SCH (08:00)
[2019-08-16] MEDS: CefTRIAXone/D5W-Rocephin 1gm 50 ML IV SCH (09:40)
[2019-08-16] MEDS: docusate sod 100mg capsule PO SCH (09:41)
[2019-08-16] MEDS: anastrozole 1 MG tablet PO SCH (09:41)
[2019-08-16] MEDS: venlafaxine 25mg tablet PO SCH (09:42)
[2019-08-16] MEDS: aspirin 81mg tablet.DR PO SCH (09:42)
[2019-08-16] MEDS: atorvastatin 20mg tablet PO SCH (09:42)
[2019-08-16] MEDS: folic acid 1mg tablet PO SCH (09:42)
[2019-08-16] MEDS: magnesium oxide 400mg tablet PO SCH (09:43)
[2019-08-16] MEDS: thiamine 100mg tablet PO SCH (09:43)
[2019-08-16] MEDS: multivitamins, therapeutics tablet PO SCH (09:43)
[2019-08-16] MEDS: cetirizine 10mg tablet PO SCH (09:44)
[2019-08-16] MEDS: heparin, porcine 5000 units/ml vial SQ SCH (09:45)
[2019-08-16 10:00] VITALS: BP 106/65
[2019-08-16] MEDS ORDERED: ASPI81TA52 PO (11:40)
[2019-08-16] MEDS ORDERED: CEFD300C3 PO (11:40)
--- NOTE | 2019-08-16 16:00 | NUR ---
Received discharge instructions from Dr. Loo for pt to return to the [facility] today. Pt's son called and will roller picker pt to transport back to the [facility]. Saline lock dc'd from [facility]. Telemetry dc'd and returned to PCU. Pt dressed and assisted to w/c for discharge. Reviewed discharge instructions with pts son Bello. Discharged at 1600 via w/c to the [facility] to continue shelter care.
== END 2019-08-16 16:00 | DRG 56 ==
LOC: ER 12:36 → ED HOLD 15:02 → ORTHO 4S 17:09
PROVIDERS: ADMIT Family Medicine; ATTEND Hospitalist
PROC: B3251ZZ Computerized Tomography (CT Scan) of Bilateral Common Carotid Arteries using Low Osmolar Contrast (ICD-10-PCS; 2019-08-12)
PROC: B32G1ZZ Computerized Tomography (CT Scan) of Bilateral Vertebral Arteries using Low Osmolar Contrast (ICD-10-PCS; 2019-08-12)
PROC: B3201ZZ Computerized Tomography (CT Scan) of Thoracic Aorta using Low Osmolar Contrast (ICD-10-PCS; 2019-08-12)
PROC: B3281ZZ Computerized Tomography (CT Scan) of Bilateral Internal Carotid Arteries using Low Osmolar Contrast (ICD-10-PCS; 2019-08-12)
PROC: 4A10X4Z Monitoring of Central Nervous Electrical Activity, External Approach (ICD-10-PCS; principal; 2019-08-14)
DX: G31.2 Degeneration of nervous system due to alcohol (principal); G92 Toxic encephalopathy; N39.0 Urinary tract infection, site not specified; E86.0 Dehydration; E03.9 Hypothyroidism, unspecified; F10.10 Alcohol abuse, uncomplicated; F01.50 Vascular dementia, unspecified severity, without behavioral disturbance, psychotic disturbance, mood disturbance, and anxiety; G62.9 Polyneuropathy, unspecified; Z66 Do not resuscitate; I10 Essential (primary) hypertension; F29 Unspecified psychosis not due to a substance or known physiological condition; F41.9 Anxiety disorder, unspecified; I25.10 Atherosclerotic heart disease of native coronary artery without angina pectoris; Z79.811 Long term (current) use of aromatase inhibitors; Z79.82 Long term (current) use of aspirin; Z85.3 Personal history of malignant neoplasm of breast; Z86.73 Personal history of transient ischemic attack (TIA), and cerebral infarction without residual deficits; Z95.0 Presence of cardiac pacemaker
CPT/HCPCS: 36415; 70450; 70496; 70498; 71045; 80053; 80061; 80320; 81001; 82948; 83036; 83735; 84100; 84484; 85025; 85610; 85730; 87081; 87088; 92508; 92616; 93005; 93306; 93880; 95816; 97110; 97116; 97161; 97530; 99285; G0378; J0696; J1644; J3480; J7030; Q9967